=== PATIENT | female | born 1945 | race Caucasian/White ===

== ENCOUNTER → 2017-03-01 | Outpatient (CLI) | payer MEDICARE ==
[~2017-03-01] MED LIST: CENTRUM SILVER PO; CYMBALTA30 MG PO; FERRO-TIME325 MG PO; FISH OIL 1,0001 CAP PO; HYDROCODON-ACE1 EAC5 PO; LIALDA1.2 G PO; LISINOPRIL5 MG PO; LITE COAT ASPI325 M2 PO; MAXAPAP325 MG PO; METOPROLOL TART25 GM PO; PANTOPRAZOLE SO40 MG PO; PRILOSEC20 MG PO; VITAMIN B COMPLEX; WELCHOL3.75 GM PO; [UNRECOGNIZED DRUG - OTHER]
--- NOTE | ~2017-03-01 | MY11 ---
[facility] A Service of [facility] RADIOLOGY TEXT RESULTS PATIENT: TAMRA MCCARTHY LOCATION: [facility] : 41 UNIT #: [id number] AGE: [address]: MAURICIO GRANT DO SEX: F ORDER DR: [id number] [facility] [address]. [place], [place] [address] [id number] O MR#: [id number] Acc #: [id number] NAME: TAMRA MCCARTHY. : 1945 SEX: F STUDY DATE/TIME: 03/01/2017 10:03 UNIT: [facility] ROOM: STUDY DESCRIPTION: MY Mammogram Screening Dig Baldomero Attending Physician: Mauricio Grant D.O. Ordering Physician: Mauricio Grant D.O. Primary Care Physician: Mauricio Grant D.O. MEDICAL IMAGING REPORT This report is preliminary unless electronic signature is present EXAM Digital screening mammogram 03/01/2017 HISTORY 71-year-old woman positive family history. Prior left breast biopsy. Annual screen. COMPARISON Mammograms date to 10/12/2005 with most recent 12/22/2015. FINDINGS Digital imaging of each breast was completed utilizing a two-view examination of each breast in craniocaudal and mediolateral-oblique projections. Review and interpretation of digital mammograms include a second review in conjunction with FDA-approved CAD device. There is a normal parenchymal presentation bilaterally consistent with the patient's age. There are no breast masses imaged and no parenchymal asymmetry is visualized. There are no suspicious microcalcifications and I see no focal architectural disturbance. IMPRESSION Negative screening digital mammogram. One-year followup recommended. ADDENDUM Breast parenchyma is fatty replaced. Patients over the age of 40 are entered into a reminder system with target due date for the next mammogram. A result letter will also be sent to the patient. BIRADS: 1 Negative [facility] A Service [facility] RADIOLOGY TEXT RESULTS PATIENT: TAMRA MCCARTHY LOCATION: [facility] : 43 UNIT #: [id number] AGE: [address]: MAURICIO GRANT DO SEX: F ORDER DR: Dictated by... Kingsley Lacy M.D. THIS IS AN ELECTRONICALLY VERIFIED REPORT Kingsley Lacy M.D. at 03/01/2017 2:42 PM LORENZO/allison TD: 03/01/2017 14:27 JOB #: [id number] MEDICAL IMAGING REPORT Page 1 of 1 COPY
== END | disposition home or self-care (01) ==
LOC: CWCC 09:22 → SMAM 09:45
DX: Z12.31 Encounter for screening mammogram for malignant neoplasm of breast (principal); Z80.3 Family history of malignant neoplasm of breast; R92.8 Other abnormal and inconclusive findings on diagnostic imaging of breast
CPT/HCPCS: G0202